=== PATIENT | male | born 1975 | race Two or more races ===

== ENCOUNTER 2019-11-06 16:12 | Emergency (ER) | payer MEDICAID, OTHER, SELFPAY ==
[~2019-11-06] VITALS: Ht 167.6 cm; Wt 83.0 kg
[2019-11-06 16:27] VITALS: BP 152/96
[2019-11-06] MEDS ORDERED: AMOXICILLIN/CLAV 875-125MG TABLET PO STA (16:52)
[2019-11-06] MEDS ORDERED: AMOXICILLIN/CLAV 875-125MG TABLET ONE (17:19)
== END 2019-11-06 17:28 | disposition home or self-care (01) ==
LOC: ED 17:20
DX: J01.00 Acute maxillary sinusitis, unspecified (principal)
CPT/HCPCS: 99283